=== PATIENT | female | born 1985 | race Caucasian/White ===

== ENCOUNTER 2018-06-30 19:08 | Emergency (ER) | payer MEDICAID ==
--- NOTE | 2018-06-30 19:45 | EDM.PDOC ---
ED HPI GENERAL MEDICAL PROBLEM - General Chief Complaint: General Stated Complaint: BLEACH IN THE EYE Time Seen by Provider: 06/30/18 19:15 Source of Information: Reports: Patient History Limitations: Reports: No Limitations - History of Present Illness INITIAL COMMENTS - FREE TEXT/NARRATIVE: Patient comes into the emergency department complaining of eye irritation. Patient was in the driveway and was cleaning in the and splashed bleach in her right eye. She felt that only one probably to is alert. She initially washed her eye out at home. She googled and found that she should report to the emergency department if bleach makes contact with the eyes. Patient presents here stating that her eye is burning and irritated but she denies any blurred vision, loss of vision, or change in vision. - Related Data Allergies Allergy/AdvReac Type Severity Reaction Status Date / Time tuberculin, purified protein Allergy Swelling Verified 01/31/16 11:27 deriva [Tuberculin,Purif.Prot.Deriv.] Home Meds: Home Meds Hydrochlorothiazide 12.5 mg PO DAILY 01/31/16 [History] Past Medical History Cardiovascular History: Reports: Hypertension Genitourinary History: Reports: Other (See Below) Other Genitourinary History: Recent kidney infection [employer] History: Reports: Dysfunctional Uterine Bleeding Psychiatric History: Reports: Anxiety, Depression Social & Family History - Caffeine Use Caffeine Use: Reports: Soda Caffeine Use Comment: Has been cutting down ED ROS GENERAL - Review of Systems Review Of Systems: ROS reveals no pertinent complaints other than HPI. Constitutional: Reports: No Symptoms HEENT: Reports: Eye Pain Respiratory: Reports: No Symptoms Cardiovascular: Reports: No Symptoms Endocrine: Reports: No Symptoms GI/Abdominal: Reports: No Symptoms : Reports: No Symptoms Musculoskeletal: Reports: No Symptoms Skin: Reports: No Symptoms Neurological: Reports: No Symptoms ED EXAM, GENERAL - Physical Exam Exam: See Below Exam Limited By: No Limitations General Appearance: Alert, WD/WN, No Apparent Distress Eye Exam: Right Eye: Vision Changes (blurry initially. resolved by discharge), Other (redness and watering noted), Bilateral Eye: EOMI, Normal Fundi, Normal Inspection, PERRL Head: Atraumatic, Normocephalic Neck: Normal Inspection, Supple, Non-Tender, Full Range of Motion Respiratory/Chest: No Respiratory Distress, No Accessory Muscle Use Cardiovascular: Normal Peripheral Pulses, No Edema Extremities: Normal Inspection, Normal Range of Motion, Normal Capillary Refill Neurological: Alert, Oriented Psychiatric: Normal Affect, Normal Mood Skin Exam: Warm, Dry, Intact Departure - Departure Time of Disposition: 20:30 Disposition: Home, Self-Care 01 Condition: Good Clinical Impression: Chemical burn of eye - Discharge Information *PRESCRIPTION DRUG MONITORING PROGRAM REVIEWED*: Not Applicable *COPY OF PRESCRIPTION DRUG MONITORING REPORT IN PATIENT BLAS: Not Applicable Instructions: Chemical Burn of the Eyes, Adult Forms: ED Department Discharge Additional Instructions: 1. rest 2. keep low lights to help reduce pain 3. Use Tylenol and ibuprofen as needed for pain and discomfort 4. Follow up with eye doctor as needed 5. Activity and diet as tolerated 6. Can use saline eye drops in the eye if it becomes irritated 7. Ice pack over the eye for discomfort is appropriate as well 8. Call with any questions or concerns. - Assessment/Plan Assessment:: 1. Chemical burn to right eye Plan: 1. Flush to right eye 2. Pt feels much better and has no concerns or complaints and would like to go home 3. Education regarding recovery, follow up, and medication management provided. 4. all questions and concerns addressed prior to discharge.
[2018-07-01 05:17] VITALS: BP 148/81
== END 2018-06-30 20:45 | disposition home or self-care (01) ==
LOC: VM.ED 19:08
DX: T54.91XA Toxic effect of unspecified corrosive substance, accidental (unintentional), initial encounter (principal); T26.91XA Corrosion of right eye and adnexa, part unspecified, initial encounter; I10 Essential (primary) hypertension; Z88.8 Allergy status to other drugs, medicaments and biological substances
CPT/HCPCS: 99283

== ENCOUNTER 2021-04-29 13:11 | Emergency (ER) | payer MEDICAID ==
[2021-04-29] MEDS ORDERED: Sodium Chloride 0.9% 10 ML Syringe FLUSH PRN (13:19)
[2021-04-29] MEDS: diphenhydrAMINE 50 MG/ML SDV IVPUSH ONE (13:30)
[2021-04-29] MEDS: Lactated Ringers 1,000 ML IV ONE (13:30)
[2021-04-29] MEDS: HYDROmorphone 0.5 MG/0.5 ML Syringe IV ONE (13:30)
[2021-04-29 13:50] LABS: CHLORIDE,CL 99 mmol/L (98-107); SODIUM,NA 138 mmol/L (136-145)
[2021-04-29 13:52] LABS: ANION GAP 8.9 mmol/L (5-15)
[2021-04-29] MEDS: Potassium Chloride 10% 20 MEQ/15 ML Soln 15 ML UD Cup PO ONE (14:33)
[2021-04-29] MEDS: Potassium Chloride 10 MEQ Tab.ER PO ONE (16:16)
[2021-04-29 16:30] VITALS: BP 134/85; PULSE 81
== END 2021-04-29 16:20 | disposition home or self-care (01) ==
LOC: VM.ED 13:11
DX: K80.50 Calculus of bile duct without cholangitis or cholecystitis without obstruction (principal); E87.6 Hypokalemia; I10 Essential (primary) hypertension; Z88.8 Allergy status to other drugs, medicaments and biological substances; Z79.899 Other long term (current) drug therapy; Z72.0 Tobacco use
CPT/HCPCS: 80053; 81003; 81025; 83605; 83690; 83735; 85025; 86140; 96374; 96375; 99284; A9270; J1170; J1200; J7120